=== PATIENT | female | born 1980 | race Caucasian/White ===

== ENCOUNTER 2018-10-20 12:02 | Emergency (ER) | payer OTHER, BC ==
--- NOTE | 2018-10-20 12:16 | EDM.PDOC ---
ED HPI GENERAL MEDICAL PROBLEM - General Chief Complaint: Upper Extremity Injury/Pain Stated Complaint: HURT HAND Time Seen by Provider: 10/20/18 12:11 Source of Information: Reports: Patient, RN, RN Notes Reviewed History Limitations: Reports: No Limitations - History of Present Illness INITIAL COMMENTS - FREE TEXT/NARRATIVE: Patient presents to the emergency room at [facility] for the evaluation of a right wrist injury. The patient states that she was walking on a sidewalk when she slipped and fell on ice. The patient states that she outstretched her right extremity to curtail her fall. The patient states that she fell forward on outstretched hand. The patient complains of pain along the volar surface of the right wrist. The pain radiates residential up the right forearm. The patient states that she has a burning sensation around the right wrist. No previous injury or traumas. No previous right wrist surgeries. The patient denies any numbness tingling or paresthesia to the right upper extremity. The patient denies any head injury or trauma. The patient is able to move all fingers without any difficulty. The patient has pain at the endpoints of hyper flexion and dorsiflexion. Patient states her injury happened during working hours. Patient states this a work related injury. Onset: Today Onset Date: 10/20/18 Right Wrist Pain Score (Numeric/FACES): 4 - Related Data Allergies Allergy/AdvReac Type Severity Reaction Status Date / Time iron Allergy Hives Verified 06/09/18 07:41 Sulfa (Sulfonamide AdvReac Body Aches Verified 06/09/18 07:41 Antibiotics) Home Meds: Home Meds Cholecalciferol (Vitamin D3) [Vitamin D3] 2,000 unit PO DAILY 11/20/13 [History] Citalopram [Citalopram HBr] 40 mg PO DAILY 11/20/13 [History] ALPRAZolam [Xanax] 0.25 mg PO BID PRN 08/19/15 [History] Albuterol Sulfate [Proair Hfa] 2 puff IH Q4HR PRN 08/19/15 [History] Clorazepate Dipotassium [Tranxene T-Tab] 3.75 mg PO BEDTIME 08/19/15 [History] HCTZ/Triamterene [Dyazide 25-37.5 MG] 1 cap PO DAILY 08/19/15 [History] Hydrocodone/Acetaminophen [Sycamore 10-325] 1 tab PO Q4H PRN 08/19/15 [History] Ibuprofen [Motrin] 800 mg PO TID PRN 08/19/15 [History] Levonorgestrel-Ethin Estradiol [Jolessa 0.15 mg-0.03 mg Tablet] 1 each PO DAILY 08/19/15 [History] Levothyroxine 112 mcg PO ACBREAKFAST 08/19/15 [History] Zolpidem [Ambien] 10 mg PO BEDTIME PRN 08/19/15 [History] traMADol HCl [Ultram] 50 mg PO TID PRN 08/19/15 [History] Past Medical History Cardiovascular History: Reports: Hypertension Respiratory History: Reports: Other (See Below) Other Respiratory History: uses albuterol inhaler when sick,reactive airway disease not asthma Musculoskeletal History: Reports: Connective Tissue Disease Neurological History: Reports: Migraines Psychiatric History: Reports: Anxiety, Depression, Mood Swings Endocrine/Metabolic History: Reports: Hypothyroidism Dermatologic History: Reports: Other (See Below) Other Dermatologic History: mixed connective tissue disease - Past Surgical History GI Surgical History: Reports: Cholecystectomy Social & Family History - Family History Family Medical History: Noncontributory Review of Systems - Review of Systems Review Of Systems: See Below Constitutional: Denies: Chills, Fever Respiratory: Denies: Shortness of Breath, Cough Cardiovascular: Denies: Chest Pain, Palpitations Musculoskeletal: Reports: Hand Pain, Joint Swelling (right wrist) Skin: Reports: No Symptoms Neurological: Reports: No Symptoms ED EXAM, GENERAL - Physical Exam Exam: See Below Exam Limited By: No Limitations General Appearance: Alert, No Apparent Distress Respiratory/Chest: No Respiratory Distress, Lungs Clear, Normal Breath Sounds Cardiovascular: Normal Peripheral Pulses, Regular Rate, Rhythm Peripheral Pulses: 2+: Radial (L), Radial (R) Extremities: Normal Capillary Refill, Limited Range of Motion (right wrist due to pain), Other (pain with palpation volar surface right wrist; no obvious bone deformity; skin intact; tract swelling; normal assessment above and below injury ) Neurological: Alert, Oriented Skin Exam: Warm, Dry, Intact, Normal Color Course - Vital Signs Last Recorded V/S: Last Vital Signs Temp 36.6 C 10/20/18 12:05 Pulse 86 10/20/18 12:05 Resp 16 10/20/18 12:05 BP 141/75 H 10/20/18 12:05 Pulse Ox 98 10/20/18 12:05 - Radiology Interpretation Free Text/Narrative:: Wrist, Right 3V: No acute fracture or dislocation seen on plain film See scanned report in EMR for details Departure - Departure Time of Disposition: 12:50 Disposition: Home, Self-Care 01 Condition: Good Clinical Impression: Encounter related to worker's compensation claim Right wrist sprain Qualifiers: Encounter type: initial encounter Qualified Code(s): S63.501A - Unspecified sprain of right wrist, initial encounter Right wrist injury Qualifiers: Encounter type: initial encounter Qualified Code(s): S69.91XA - Unspecified injury of right wrist, hand and finger(s), initial encounter - Discharge Information *PRESCRIPTION DRUG MONITORING PROGRAM REVIEWED*: Not Applicable *COPY OF PRESCRIPTION DRUG MONITORING REPORT IN PATIENT [facility]: Not Applicable Instructions: Wrist Sprain, Adult, Wrist Splint, Adult Forms: ED Department Discharge Additional Instructions: 1. Stay well hydrated and rest 2. Rest, elevate, and ice right wrist several times a day 3. Alternate Tylenol/Advil as needed for pain 4. See your PCP as symptoms warrant 5. May return to work without any restriction as your injury is just a sprain - Problem List Review Problem List Initiated/Reviewed/Updated: Yes - Assessment/Plan Assessment:: Right Wrist Sprain Right Wrist injury Fall on ice Plan: Xrays discussed with patient. No acute fracture or dislocation seen on plain film. Will place patient in a wrist splint. RICE. Alternate Tylenol/Advil as needed. FU with PCP as symptoms warrant.
[2018-10-20 12:28] VITALS: BP 141/75
--- NOTE | 2018-10-20 12:49 | CR ---
[id number] RAD/RAD Wrist Right 3V Min EXAM: 3 VIEWS RIGHT WRIST. INDICATION: FALL ON ICE; RIGHT WRIST PAIN. COMPARISON: None. DISCUSSION: No fracture, dislocation or other acute osseous abnormality. IMPRESSION: 1. No acute osseous abnormalities. Des Gonzalez DO 10/20/18 1248 Thank you for allowing us to participate in the care of your patient.
== END 2018-10-20 13:00 | disposition home or self-care (01) ==
LOC: VM.ED 12:02
DX: S63.501A Unspecified sprain of right wrist, initial encounter (principal); I10 Essential (primary) hypertension; F41.9 Anxiety disorder, unspecified; F32.9 Major depressive disorder, single episode, unspecified; E03.9 Hypothyroidism, unspecified; Z91.09 Other allergy status, other than to drugs and biological substances; Z88.2 Allergy status to sulfonamides; Z79.899 Other long term (current) drug therapy; W00.0XXA Fall on same level due to ice and snow, initial encounter
CPT/HCPCS: 73110-RT; 99283-25

== ENCOUNTER 2023-03-30 19:54 | Emergency (ER) | payer OTHER ==
[2023-03-30 20:24] VITALS: BP 153/83; PULSE 90
[2023-03-30] MEDS ORDERED: Acetaminophen/HYDROcodone 325-5 MG Tab PO ONE (20:50)
== END 2023-03-30 21:20 | disposition home or self-care (01) ==
LOC: VM.ED 19:54
DX: S20.212A Contusion of left front wall of thorax, initial encounter (principal); I10 Essential (primary) hypertension; E03.9 Hypothyroidism, unspecified; Z88.2 Allergy status to sulfonamides; Z91.048 Other nonmedicinal substance allergy status; Z79.899 Other long term (current) drug therapy; Y04.0XXA Assault by unarmed brawl or fight, initial encounter
CPT/HCPCS: 71101-LT; 99283; A9270-GY

== ENCOUNTER 2024-01-16 11:03 | Emergency (ER) | payer OTHER ==
[2024-01-16] MEDS: LORazepam 1 MG Tab PO ONE (11:21)
== END 2024-01-16 11:41 | disposition home or self-care (01) ==
LOC: VM.ED 11:03
DX: F41.9 Anxiety disorder, unspecified (principal); F32.A Depression, unspecified
CPT/HCPCS: 99283; A9270

== ENCOUNTER 2025-06-17 14:15 | Emergency (ER) | payer OTHER ==
[2025-06-17 14:41] VITALS: BP 134/90; PULSE 88
[2025-06-17] MEDS: Acetaminophen/HYDROcodone 325-5 MG Tab PO ONE (14:58)
== END 2025-06-17 15:03 | disposition home or self-care (01) ==
LOC: VM.ED 14:15
DX: M25.561 Pain in right knee (principal); I10 Essential (primary) hypertension; E03.9 Hypothyroidism, unspecified; Z79.899 Other long term (current) drug therapy; Z79.890 Hormone replacement therapy; Z91.048 Other nonmedicinal substance allergy status; Z88.6 Allergy status to analgesic agent; Z88.2 Allergy status to sulfonamides
CPT/HCPCS: 99283; A9270-GY